=== PATIENT | female | born 1950 | race Caucasian/White ===

== ENCOUNTER → 2017-01-05 | Day surgery (SDC) | payer MEDICARE ==
[2017-01-05 07:56] LABS: HCT 37.7 % (37.0-47.0); HGB 12.8 g/dl (12.5-16.0); MCH 29.9 pg (25.0-31.0); MCV 88.1 fL (78.0-100.0); MPV 9.1 fL (6.0-9.5); RBC 4.28 M/uL (4.20-5.40); WBC 5.2 K/uL (4.0-10.5)
[2017-01-05 08:15] LABS: ALBUMIN 4.3 g/dL (3.4-4.8); BILIRUBIN - TOTAL 0.2 mg/dL (0.1-1.0); CREATININE 0.7 mg/dL (0.5-1.0); GLOBULIN (CALCULATION) 2.6 g/dL (2.2-4.2); POTASSIUM 4.7 mmol/L (3.5-5.1); TOTAL PROTEIN 6.9 g/dL (6.4-8.3)
== END | disposition home or self-care (01) ==
LOC: FAS 07:33
PROVIDERS: Surgery
DX: K29.50 Unspecified chronic gastritis without bleeding (principal); M81.0 Age-related osteoporosis without current pathological fracture; C85.93 Non-Hodgkin lymphoma, unspecified, intra-abdominal lymph nodes; Z88.2 Allergy status to sulfonamides; Z79.899 Other long term (current) drug therapy; Z98.890 Other specified postprocedural states; G43.909 Migraine, unspecified, not intractable, without status migrainosus; Z90.710 Acquired absence of both cervix and uterus; Z98.49 Cataract extraction status, unspecified eye
CPT/HCPCS: 36415; 80053; 88305; J2704

== ENCOUNTER 2022-01-31 09:05 | Emergency (ER) | payer MEDICARE ==
[~2022-01-31] VITALS: Ht 162.6 cm; Wt 51.7 kg
[~2022-01-31 09:05] MED LIST: ACTONEL; CITRACAL + BON1 EACH PO; CULTURELLE1 EACH PO; PEPCID AC20 MG PO; VITAMIN B122500 MCG PO; ZANTAC150 MG PO
[2022-01-31] MEDS ORDERED: NORCO 5-325 TA1 EACH PO (10:53)
== END 2022-01-31 11:19 | disposition home or self-care (01) ==
LOC: FER 09:05
DX: S52.501A Unspecified fracture of the lower end of right radius, initial encounter for closed fracture (principal); S52.614A Nondisplaced fracture of right ulna styloid process, initial encounter for closed fracture; W19.XXXA Unspecified fall, initial encounter; W54.1XXA Struck by dog, initial encounter; Y92.009 Unspecified place in unspecified non-institutional (private) residence as the place of occurrence of the external cause
CPT/HCPCS: 73090; 73110